=== PATIENT | female | born 1975 | race Caucasian/White ===

== ENCOUNTER → 2016-06-16 | Outpatient (CLI) | payer BC | LOC: RAD 18:05 | DX: R05 Cough (principal); R91.8 Other nonspecific abnormal finding of lung field | CPT/HCPCS: 71020 ==

== ENCOUNTER → 2016-09-22 | Outpatient (CLI) | payer BC | LOC: RAD 16:52 | DX: R05 Cough (principal) | CPT/HCPCS: 71020 ==

== ENCOUNTER → 2020-04-17 | Outpatient (CLI) | payer OTHER ==
[~2020-04-17] MED LIST: NORCO 5-325 TA1 EACH PO
== END ==
LOC: RAD 08:19
DX: M79.642 Pain in left hand (principal); J45.909 Unspecified asthma, uncomplicated
CPT/HCPCS: 71046; 73120

== ENCOUNTER → 2020-04-30 | Outpatient (CLI) | payer OTHER | LOC: HEART 5 10:04 | DX: J45.909 Unspecified asthma, uncomplicated (principal); R94.2 Abnormal results of pulmonary function studies | CPT/HCPCS: 94010 ==

== ENCOUNTER 2020-10-24 14:11 | Emergency (ER) | payer OTHER | END 2020-10-24 16:22 | disposition home or self-care (01) | LOC: ER1 14:11 | DX: S00.83XA Contusion of other part of head, initial encounter (principal); I10 Essential (primary) hypertension; J45.909 Unspecified asthma, uncomplicated; W20.8XXA Other cause of strike by thrown, projected or falling object, initial encounter; Y92.830 Public park as the place of occurrence of the external cause | CPT/HCPCS: 73060; 73630; 99284 ==

== ENCOUNTER → 2021-01-08 | Outpatient (CLI) | payer OTHER | LOC: HEART 5 15:21 | DX: R00.2 Palpitations (principal) ==

== ENCOUNTER → 2021-01-13 | Outpatient (CLI) | payer OTHER | LOC: RAD 09:28 | DX: R07.9 Chest pain, unspecified (principal) | CPT/HCPCS: 71046 ==

== ENCOUNTER 2021-03-29 14:59 | Emergency (ER) | payer OTHER | END 2021-03-29 22:02 | disposition home or self-care (01) | LOC: ER1 14:59 | DX: U07.1 COVID-19 (principal); Z23 Encounter for immunization; Z88.1 Allergy status to other antibiotic agents | CPT/HCPCS: 99283; M0245 ==

== ENCOUNTER → 2021-05-26 | Outpatient (CLI) | payer OTHER | LOC: KOH-I 08:00 | DX: R22.0 Localized swelling, mass and lump, head (principal); R93.0 Abnormal findings on diagnostic imaging of skull and head, not elsewhere classified | CPT/HCPCS: 70450 ==